=== PATIENT | male | born 1985 | race Asian ===

== ENCOUNTER 2017-04-27 15:10 | Inpatient (IN) | payer OTHER ==
[~2017-04-27] VITALS: Ht 175.3 cm; Wt 66.7 kg
--- NOTE | 2017-04-27 15:18 | NUR ---
PT BIB [facility] S/P WITNESSED SZ, RECEIVED 5MG VERSED IN FIELD. EJ FROM EMS INTACT. UNRESPONSIVE TO VERBAL, TOUCH, AND PAIN. SKIN HOT, MOIST. RESP EVEN UNLABORED, ON 15L VIA NRB FOR SUPPORT, SATTING 100%. IN ER BED 05. MD AT BEDSIDE UPON ARRIVAL TO ER.
[2017-04-27 15:37] LABS: BASOPHILS # (AUTO) 0.1 /CMM (0.0-0.2); BASOPHILS % (AUTO) 0.5 % (0.0-2.0); EOSINOPHILS # (AUTO) 0.1 /CMM (0.0-0.7); EOSINOPHILS % (AUTO) 0.9 % (0.0-6.0); HEMATOCRIT 52 % (39-51); HEMOGLOBIN 16.7 g/dL (13.5-17.5); LYMPHOCYTES # (AUTO) 3.8 /CMM (0.8-4.8); LYMPHOCYTES % (AUTO) 37.6 % (20.0-44.0); MEAN CORPUSCULAR HEMOGLOBIN 29 PG (26.0-33.0); MEAN CORPUSCULAR HGB CONC 32 g/dl (31.0-36.0); MEAN CORPUSCULAR VOLUME 90 fL (80-96); MONOCYTES # (AUTO) 0.4 /CMM (0.1-1.30); MONOCYTES % (AUTO) 3.7 % (2.0-12.0); NEUTROPHILS # (AUTO) 5.8 /CMM (1.8-8.9); NEUTROPHILS % (AUTO) 57.3 % (43.0-81.0); PLATELET COUNT (AUTO) 232 /CMM (150-450); RDW COEFFICIENT OF VARIATION 12.8 (11.5-15.0); RED BLOOD CELL COUNT(AUTO) 5.74 MIL/uL (4.5-6.0); WHITE BLOOD COUNT (AUTO) 10.2 K/uL (4.3-11.0)
[2017-04-27 15:49] LABS: CALCIUM, SERUM 9.1 mg/dL (8.5-10.1); CARBON DIOXIDE 13 mmol/L (21-32); CHLORIDE 102 mmol/L (98-107); CREATININE 1.6 mg/dL (0.6-1.3); GLUCOSE 161 mg/dL (74-106); POTASSIUM 3.9 mmol/L (3.5-5.1); SODIUM SERUM 139 mmol/L (136-145); UREA NITROGEN, BLOOD 26 mg/dL (7-18)
--- NOTE | 2017-04-27 15:50 | NUR ---
16FR LEMON CATH INSERTED PER MD ORDER. URINE SAMPLE OBTAINED.
[2017-04-27 15:51] LABS: INR 0.95 (0.87-1.13); PROTHROMBIN TIME 9.9 SECS (9.5-12.7)
[2017-04-27 15:55] LABS: TROPONIN I < 0.017 ng/mL (0.00-0.056)
[2017-04-27 15:59] LABS: ALANINE AMINOTRANSFERASE 41 U/L (12-78); ALBUMIN 4.6 g/dL (3.4-5.0); ALKALINE PHOSPHATASE 107 U/L (46-116); ASPARTATE AMINOTRANSFERASE 31 U/L (15-37); BILIRUBIN,DIRECT 0.1 mg/dL (0.0-0.2); BILIRUBIN,TOTAL 0.3 mg/dL (0.2-1.0); TOTAL PROTEIN, SERUM 8.7 g/dL (6.4-8.2)
--- NOTE | 2017-04-27 16:15 | NUR ---
pt noted to be moving his head spontaneously but remains unresponsive to external stimulus. MD notified.
[2017-04-27 16:19] LABS: APPEARANCE,URINE SL CLOUDY (CLEAR); BILIRUBIN,URINE NEGATIVE (NEGATIVE); BLOOD, URINE 3+ Ery/uL (NEGATIVE); COLOR,URINE YELLOW (YELLOW); KETONES,URINE NEGATIVE (NEGATIVE); LEUKOCYTE ESTERASE ,URINE 2+ (NEGATIVE); NITRITE, URINE NEGATIVE (NEGATIVE); PH,URINE 6.5 (5.0-8.0); PROTEIN,URINE TRACE mg/dl (NEGATIVE); UGLUCOSE NEGATIVE (NEGATIVE); UROBILINOGEN,URINE 0.2 EU/dL (0.2)
[2017-04-27 17:29] LABS: SALICYLATE 3.3 mg/dL (2.8-20.0)
[2017-04-27 17:32] LABS: ACETAMINOPHEN < 2 ug/ml (10-30); ALCOHOL, BLOOD < 3 mg/dL (0-0)
[2017-04-27 17:35] LABS: BACTERIA,URINE Many /HPF (None Seen); SQUAMOUS EPITHELIAL CELL,UR Rare /HPF (None Seen)
--- NOTE | 2017-04-27 17:57 | NUR ---
PAGED JIGGER OPERATOR PANEL, DR JOSÉ MIGUEL HUI
--- NOTE | 2017-04-27 18:00 | NUR ---
PT NOTED TO OPEN EYES AT THIS TIME. DR STUBBS AT BEDSIDE FOR REASSESSMENT AND UPDATE.
--- NOTE | 2017-04-27 18:15 | NUR ---
ROOM 256 ICU BED
--- NOTE | 2017-04-27 18:16 | NUR ---
REPORT GIVEN TO XOCHITL FREEMAN FOR ADMISSION
--- NOTE | 2017-04-27 18:50 | NUR ---
PT TRANSPORTED TO ICU RM 256 IN CRITICAL CONDITION VIA ACLS PROTOCOL
[2017-04-27 20:00] VITALS: BP_SYST 140; BP_SYST 153; BP_DIAS 85; BP_DIAS 88
--- NOTE | 2017-04-27 20:34 | NUR ---
TOP TILE DECORATOR. ADMISSION. RECEIVED THE PT FROM ER VIA 9flats. PT DIAGNOSIS SEPSIS AND ACUTE SEIZURE .PT SLEEPING. NOT RESPONDING.NAME. PAINFUL STIMULI RESPONDING. OXYGEN 5L VIA NASAL CANNULA. SAT 98%. NO ACUTE DISTRESS NOTED. WELDER EXPERIMENTAL SHOWING NSR. IV RT EJ 18G. NS 75ML/H, FC PATENT. URINE DRAINING. AFEBRILE. WWILL CONTINUE TO MONITOR VITALS.
[2017-04-27 21:00] VITALS: BP 160/95
--- NOTE | 2017-04-27 21:38 | NUR ---
MACHINE SANDER. GISELL 1800 ER GIVEN. 2100 KEPPRA NOT GIVEN. LOVENOX [address] SHOWING SMALL SUBDURAL HEMORRHAGE . RENATA MADE AWARE.
[2017-04-27 22:00] VITALS: BP 144/96
[2017-04-27 22:30] VITALS: BP 147/100
[2017-04-27 23:00] VITALS: BP 162/111
[2017-04-27 23:30] VITALS: BP 163/110
[2017-04-28] VITALS (23 sets, daily range): BP systolic 106–163; BP diastolic 79–111
--- NOTE | 2017-04-28 01:44 | NUR ---
TIE IN HAND PT NOW AWAKE, C/O RT SHOULDER PAIN PAGED RENATA NEW ORDER RECEIVED
--- NOTE | 2017-04-28 03:42 | NUR ---
HOME DELIVERY DRIVER. PT MORE AWAKE, SOME TIMES CONFUSED, PULLING IVS, WILL CONTINUE TO MONITOR VITALS.
[2017-04-28 04:40] LABS: HEMATOCRIT 45 % (39-51); HEMOGLOBIN 15.1 g/dL (13.5-17.5); LYMPHOCYTES % (AUTO) 7.5 % (20.0-44.0); MEAN CORPUSCULAR HEMOGLOBIN 30 PG (26.0-33.0); MEAN CORPUSCULAR HGB CONC 34 g/dl (31.0-36.0); MEAN CORPUSCULAR VOLUME 88 fL (80-96); MONOCYTES # (AUTO) 0.5 /CMM (0.1-1.30); MONOCYTES % (AUTO) 3.4 % (2.0-12.0); NEUTROPHILS # (AUTO) 11.7 /CMM (1.8-8.9); NEUTROPHILS % (AUTO) 89.1 % (43.0-81.0); PLATELET COUNT (AUTO) 204 /CMM (150-450); RDW COEFFICIENT OF VARIATION 13.4 (11.5-15.0); RED BLOOD CELL COUNT(AUTO) 5.12 MIL/uL (4.5-6.0); WHITE BLOOD COUNT (AUTO) 13.1 K/uL (4.3-11.0)
--- NOTE | 2017-04-28 04:44 | NUR ---
DREDGE OR BARGE SHORE HAND. AM CARE, ORAL CARE, BED BATH GIVEN. LINEN CHANGED. REMAINING SAME OXYGEN 2L VIA NASAL CANNULA. SAT 98%. NO ACUTE DISTRESS NOTED. COMPOSITION FLOOR SETTER SHOWING NSR. IV LT EJ. IVF NS 75 ML/H. PT SOME TIMES CONFUSED. HOB ELEVATED. WILL CONTINUE TO MONITOR VITALS,
[2017-04-28 05:00] LABS: CALCIUM, SERUM 8.5 mg/dL (8.5-10.1); CREATININE 1.3 mg/dL (0.6-1.3); MAGNESIUM 2.2 mg/dL (1.8-2.4)
--- NOTE | 2017-04-28 05:36 | NUR ---
HONING MACHINE SET UP OPERATOR. DURING SHIFT NO SEIZURE NOTED. WILL CONTINUE TO MONITOR
--- NOTE | 2017-04-28 08:34 | NUR ---
WOUND CARE CONSULT: PT ABLE TO ASSIST WITH TURNING AND REPOSITIONING IN BED. SCARRING NOTED TO RT LOWER LEG AND ANKLE WELL SACRAL AREA. RECOMMENDATIONS MADE FOR SKIN PROTECTION. DISCUSSED WITH NURSING STAFF. WILL SEE PRN. ALFARO IN AGREEMENT WITH PLAN OF CARE. CURRENT LUIS SCORE IS 14. Addendum: 04/28/17 at 0836 by YSABEL DALAL WNDNU Amended: Links added.
[2017-04-28 12:00] LABS: CHOLESTEROL 186 mg/dL (<200); HDL CHOLESTEROL 67 mg/dL (40-60); LDL 107 mg/dL (0-99); TRIGLYCERIDES 53 mg/dL (30-150)
--- NOTE | 2017-04-28 17:45 | NUR ---
pt transferred to room 116-2 in stable condition;report given to receiving nurse.
--- NOTE | 2017-04-28 18:28 | NUR ---
Tele/RN - Notes Pt received from ICU. Alert and oriented x4. Girlfriend at bedside. SR 86 on the monitor. Polk catheter draining urine to gravity. Pt eating dinner. Safety and comfort measures in place.
--- NOTE | 2017-04-28 20:00 | NUR ---
RECEIVED PATIENT IN BED, HIS EYES ARE CLOSED, RESPOND TO THE TOUCH. AAO, VSS,AFEBRILE CALL LIGHT WITHIN REACH, INSTRUCTED TO CALL FOR ASSISTANCE
[2017-04-29] VITALS: BP 116/89
[2017-04-29 04:00] VITALS: BP 116/69
--- NOTE | 2017-04-29 07:10 | NUR ---
RN NOTES RECEIVED PT ON BED, A/Ox4, NO SEIZURE ACTIVATES NOTE, RESPIRATION EVEN AND UNLABORED, ON RA , LEMON DRAINING TO GRAVITY WITH YELLOW CLEAR URINE, L EJ G22 AND R HAND G 22 IV SITES CDI, SR UP x3, CALL LIGHT WITHIN EASY REACH, BED LOCKED AND IN LOWEST POSITION , CONTINUE TO MONITOR AND FOLLOW SZ PRECAUTION .
[2017-04-29 08:00] VITALS: BP 139/97
[2017-04-29 08:06] LABS: CALCIUM, SERUM 8.6 mg/dL (8.5-10.1); CREATININE 1.1 mg/dL (0.6-1.3); POTASSIUM 3.8 mmol/L (3.5-5.1)
[2017-04-29] MEDS ORDERED: SULF1TAB48 PO (11:21)
[2017-04-29 12:00] VITALS: BP 132/88
--- NOTE | 2017-04-29 14:00 | NUR ---
RN NOTE DR. BLANCO OFFICE NOTIFIED THAT PT HAS TO BE CLEAR BY DR BLANCO, SPOKEN TO AMANDA .
[2017-04-29 16:00] VITALS: BP 127/89
--- NOTE | 2017-04-29 16:23 | NUR ---
RN NOTES DR CHA CALLED , FOR STATIN ,ANA , STATED THAT THIS IS NOT A STROKE AND HE WILL NOTE THAT IN THE CHART , ALSO LEMON STAYS IN PER DR CHA ORDER .
--- NOTE | 2017-04-29 16:25 | NUR ---
RN NOTES DISCHARGE INSTRUCTION GIVEN TO PT. PT EDUCATED REGARDING STROKE SIGN AND SYMPTOMS AND IMPORTANCE OF MED COMPLIANCE AND DAILY EXERCISE .PT VERBALIZES UNDERSTANDING .
--- NOTE | 2017-04-29 17:00 | NUR ---
RN NOTES PT STATED HIS RIGHT SHOULDER IS PAINFUL WHEN HE RAISES HIS ARM , DR VALDEZ NOTIFIED, RIGHT SHOULDER X-RAY ORDERED PER MD . CONTINUE TO MONITOR .
--- NOTE | 2017-04-29 18:39 | NUR ---
RN NOTES PT AT REST ,NO SOB NOTED, LEMON DRAINING TO GRAVITY , SR UP x3, SUPPORTIVE FAMILY AT THE BEDSIDE . AWAITING FOR SHOULDER X-RAY RESULTS .
--- NOTE | 2017-04-29 19:30 | NUR ---
telephone order clerk room service notes received pts on bed awake alert and verbally responsive , girlfriend at bedside , v/s stable afebrile , no sob no distress noted complain of pain right shoulder, per endorsement xray shoulder done awaiting for result, pts for discharge tonite depending on xray result.
--- NOTE | 2017-04-29 19:45 | NUR ---
telecommunication tower technician notes spoke to dr Max singh, RELAYED XRAY SHOULDER RESULT -NO ACUTE FRACTURE OR DISLOCATION IS SEEN, DR VALDEZ said ok to discharge pts. spoke to pts relayed xray result and that dr valdez said pts to be discharge tonite.pts verbalize understanding, ambulance arrange by charge nurse ,eta is 30 minutes , f/c removed as ordered , with 350cc of yellowish urine output. all iv lines removed , no bleeding noted .discharge instruction and education and prescription given and explain verbalized understanding,stoke education discharge given as well with understanding .per pts he said he has artificial sphincter so every time he urinate he has to catheterize himself.
[2017-04-29 20:00] VITALS: BP 146/98
--- NOTE | 2017-04-29 20:30 | NUR ---
telephoto engineer notes norco given as ordered for right shoulder pain,with releif post 30 minutes.
--- NOTE | 2017-04-29 21:05 | NUR ---
telephoner notes pts was picked up by ambulance med response with 2 emt. in stable condition , v/s stable afebrile ,discharge home accompanied by girlfriend .
== END 2017-04-29 21:05 | disposition home or self-care (01) | DRG 44 ==
LOC: ER 15:12 → ICU 19:01 → TELE1 04-28 17:58
PROC: 05H533Z Insertion of Infusion Device into Right Subclavian Vein, Percutaneous Approach (ICD-10-PCS; principal; 2017-04-28)
DX: I62.01 Nontraumatic acute subdural hemorrhage (principal); N17.0 Acute kidney failure with tubular necrosis; G40.89 Other seizures; E87.2 Acidosis; G82.20 Paraplegia, unspecified; N39.0 Urinary tract infection, site not specified; V89.2XXS Person injured in unspecified motor-vehicle accident, traffic, sequela; B96.20 Unspecified Escherichia coli [E. coli] as the cause of diseases classified elsewhere
CPT/HCPCS: 36415; 70450-TC; 71010-TC; 73030-TC; 80048-TC; 80061-TC; 80076-TC; 80305; 81000-TC; 83605-TC; 83735-TC; 84100-TC; 84484-TC; 85025-TC; 85730-TC; 87040-TC; 87081-TC; 87086-TC; 87186-TC; 95819-TC; A4606; C9113; G0480; J0456; J0696; J1650; J1953; J7030; J7060; Z7610